=== PATIENT | female | born 1945 | race Caucasian/White ===

== ENCOUNTER 2017-02-19 09:12 | Day surgery (SDC) | payer OTHER ==
--- NOTE | ~2017-02-19 | EGD ---
EGD REPORT [facility] [address] [id number] NAME: SHARMAINE VAUGHN : [birth year] STATUS : REG [facility] PAT#: [id number] AGE: 71 ADM/REG DATE : 02/19/17 MR#: [id number] REPORT SERV DATE: 02/19/17 DICTATED BY: ATIF TURNER DATE: 02/19/17 REPORT STATUS : Draft TRANSCRIBED BY: [facility] DATE: 02/19/17 Endoscopy Center Patient Name: Sharmaine Vaughn Date of : 1945 Attending MD: ATIF UTRNER MD Procedure Date No Time: 02/19/2017 Procedure: Colonoscopy Indications: High risk colon cancer surveillance: Personal history of colonic polyps Referring MD: LINDSAY GROVER MD Medicines: Monitored Anesthesia Care Complications: No immediate complications. Procedure: Pre-Anesthesia Assessment: - ASA Grade Assessment: III - A patient with severe systemic disease. After I obtained informed consent, the scope was passed under direct vision. Throughout the procedure, the patient's blood pressure, pulse, and oxygen saturations were monitored continuously. The PCF [id number] was introduced through the anus and advanced to the cecum, identified by appendiceal orifice and ileocecal valve. The colonoscopy was performed without difficulty. The patient tolerated the procedure well. The quality of the bowel preparation was adequate. Findings: The digital rectal exam was normal. Pertinent negatives include no palpable rectal lesions. A sessile polyp was found in the ascending colon. The polyp was 5 mm in size. The polyp was removed with a cold biopsy forceps. Resection and retrieval were complete. Seven sessile polyps were found in the sigmoid colon. The polyps were 3 to 10 mm in size. These polyps were removed with a cold biopsy forceps. Resection and retrieval were complete. Seven sessile polyps were found in the rectum. The polyps were 5 to 10 mm in size. These polyps were removed with a cold snare. Resection and retrieval were complete. A single medium-sized angioectasia was found in the ascending colon. Diffuse melanosis was found in the entire colon. Hemorrhoids were found during retroflexion. Impression: - One 5 mm polyp in the ascending colon. Resected and retrieved. - Seven 3 to 10 mm polyps in the sigmoid colon. Resected and retrieved. EGD REPORT [address] [place]. [address] NAME: SHARMAINE VAUGHN : [birth year] STATUS : REG [facility] PAT#: [id number] AGE: 71 ADM/REG DATE : 02/19/17 MR#: [id number] REPORT SERV DATE: 02/19/17 DICTATED BY: ATIF TURNER DATE: 02/19/17 REPORT STATUS : Draft TRANSCRIBED BY: [employer] DATE: 02/19/17 - Seven 5 to 10 mm polyps in the rectum. Resected and retrieved. - A single colonic angioectasia. - Melanosis in the colon. - Hemorrhoids. Recommendation: - Patient has a contact number available for emergencies. The signs and symptoms of potential delayed complications were discussed with the patient. Return to normal activities tomorrow. Written discharge instructions were provided to the patient. - Regular diet. - Continue present medications. - Await pathology results. - Repeat colonoscopy in 2 years for surveillance. - Return to GI clinic PRN. Procedure Code(s): --- Professional --- 60038, Colonoscopy, flexible, proximal to splenic flexure; with removal of tumor(s), polyp(s), or other lesion(s) by snare technique 77259, 59, Colonoscopy, flexible, proximal to splenic flexure; with biopsy, single or multiple Diagnosis Code(s): --- Professional --- K62.1, Rectal polyp D12.5, Benign neoplasm of sigmoid colon D12.2, Benign neoplasm of ascending colon K55.20, Angiodysplasia of colon without hemorrhage K63.89, Other specified diseases of intestine K64.9, Unspecified hemorrhoids Z86.010, Personal history of colonic polyps CPT copyright 2013 [employer]. All rights reserved. The codes documented in this report are preliminary and upon regulatory product manager review may be revised to meet current compliance requirements. ATIF TURNER MD 02/19/2017 11:32 AM This report has been signed electronically. Number of Addenda: 0 Note Initiated On: 02/19/2017 10:54 AM Scope Withdrawal Time 0 hours 24 minutes [address] [facility] [address] [id number] NAME: SHARMAINE VAUGHN : [birth year] STATUS : REG [facility] PAT#: [id number] AGE: 71 ADM/REG DATE : 02/19/17 MR#: [id number] REPORT SERV DATE: 02/19/17 DICTATED BY: ATIF TURNER DATE: 02/19/17 REPORT STATUS : Draft TRANSCRIBED BY: [employer] DATE: 02/19/17 [address] [place] [id number]
[~2017-02-19 09:12] MED LIST: ADVAIR250 INH; KLONO5 PO; NEUR600 PO; NORCO1 TA2 PO; PR25 PO; PRAVAC; PRIN10 PO; SINGULAIR1 PO
== END 2017-02-19 23:59 | disposition home or self-care (01) ==
LOC: DMU 09:12
PROVIDERS: Internal Medicine Gastroenterology
PROC: 0DBP8ZX Excision of Rectum, Via Natural or Artificial Opening Endoscopic, Diagnostic (ICD-10-PCS; 2017-02-19)
PROC: 0DBK8ZX Excision of Ascending Colon, Via Natural or Artificial Opening Endoscopic, Diagnostic (ICD-10-PCS; principal; 2017-02-19 10:30)
PROC: 0DBN8ZX Excision of Sigmoid Colon, Via Natural or Artificial Opening Endoscopic, Diagnostic (ICD-10-PCS; 2017-02-19 10:30)
DX: D12.2 Benign neoplasm of ascending colon (principal); K63.5 Polyp of colon; K62.1 Rectal polyp; K55.20 Angiodysplasia of colon without hemorrhage; K63.89 Other specified diseases of intestine; K64.9 Unspecified hemorrhoids; K21.9 Gastro-esophageal reflux disease without esophagitis; E78.00 Pure hypercholesterolemia, unspecified; J45.909 Unspecified asthma, uncomplicated; F41.9 Anxiety disorder, unspecified; G89.29 Other chronic pain; M54.9 Dorsalgia, unspecified; M54.2 Cervicalgia; I10 Essential (primary) hypertension; Z86.010 Personal history of colon polyps; Z79.891 Long term (current) use of opiate analgesic; Z79.899 Other long term (current) drug therapy; Z98.1 Arthrodesis status; Z98.890 Other specified postprocedural states
CPT/HCPCS: 88305